=== PATIENT | female | born 1995 | race Caucasian/White ===

== ENCOUNTER → 2019-12-03 10:53 | Outpatient (CLI) | payer OTHER, SELFPAY | LOC: PSN 10:54 | PROVIDERS: PCP Family Medicine; Referring Provider Family Medicine; Visit Provider Family Medicine | DX: R00.2 Palpitations (principal) | CPT/HCPCS: 93225; 93226 ==

== ENCOUNTER → 2019-12-10 10:52 | Outpatient (CLI) | payer OTHER, SELFPAY ==
--- NOTE | 2019-12-10 10:55 | ECHOCS_ITS ---
Reason For Study: PALPITATIONS Procedure This was a 2D Doppler, Color Flow transthoracic echocardiogram. The study was technically difficult. Contrast injection was performed. Exam performed in department. Left Ventricle Normal LV size. The estimated ejection fraction is 55 %. No evidence for diastolic dysfunction. No regional wall motion abnormalities noted. Right Ventricle Normal RV size. Normal systolic function. Atria Normal left atrium. Normal right atrium. No doppler evidence for ASD. Mitral Valve There is no mitral valve stenosis. No mitral valve insufficiency. Tricuspid Valve There is no tricuspid stenosis. Unable to estimate RV systolic pressure due to inadequate jet, pulmonary artery pressure probably normal. No tricuspid valve insufficiency. Aortic Valve Trisinus/trileaflet aortic valve. There is no aortic stenosis. No aortic valve insufficiency. Pulmonic Valve There is no pulmonic valvular stenosis. No pulmonic valve insufficiency. Great Vessels Normal aortic root. Pericardium/Pleural No pericardial effusion. Medication 22 gauge I.V. with prn adaptor inserted into left arm. Diluted definity 3.0ml given slow IV push to enhance endocardial definition. MMode/2D Measurements & Calculations LVIDd: 4.4 cm IVSd: 0.87 cm Ao root diam: 2.8 cm LVIDs: 3.1 cm LVPWd: 0.88 cm RVDd: 2.6 cm FS: 28.9 % LAV(MOD-bp): 38.5 ml LVAd ap4: 33.1 cm2 SV(MOD-sp4): 59.6 ml LAV(MOD-bp) Indexed: 19.0 ml/m2 EDV(MOD-sp4): 103.0 ml LAV(MOD-sp2): 37.3 ml EDV(sp4-el): 109.8 ml LAV(MOD-sp4): 40.1 ml LVAs ap4: 18.3 cm2 ESV(MOD-sp4): 43.4 ml ESV(sp4-el): 45.3 ml EF(MOD-sp4): 57.9 % EF(sp4-el): 58.8 % SV(sp4-el): 64.6 ml LA A4 area: 16.3 cm2 LA dimension(2D): 4.3 cm RA A4 area: 9.7 cm2 Time Measurements MV dec time: 0.20 sec Doppler Measurements & Calculations MV E max hermes: 110.6 cm/sec Lat Peak E' Hermes: 15.4 cm/sec Med Peak E' Hermes: 10.4 cm/sec MV A max hermes: 70.0 cm/sec E/E' lat: 7.2 E/E' med: 10.6 MV E/A: 1.6 Ao V2 max: 171.0 cm/sec LV V1 max: 130.3 cm/sec PA V2 max: 131.6 cm/sec Ao max P.7 mmHg LV V1 max P.8 mmHg TR max hermes: 252.2 cm/sec TR max P.4 mmHg Interpretation Summary The estimated ejection fraction is 55 %. No evidence for diastolic dysfunction. The study was technically difficult. Contrast injection was performed. Ordering Physician: Justen Castle Referring Physician: Justen Castle Performed By: Lizzy Bacon, NADEGE, RVT
== END ==
LOC: CVS 10:52
PROVIDERS: PCP Family Medicine; Referring Provider Family Medicine; Visit Provider Family Medicine
DX: R00.2 Palpitations (principal)
CPT/HCPCS: 93306; Q9957; A4216; C8929